=== PATIENT | male | born 1980 | race Hispanic/Latino ===

== ENCOUNTER 2018-09-01 21:53 | Emergency (ER) | payer OTHER ==
[2018-09-02] MEDS ORDERED: CEPHALEXIN 500 MG CAPSULE ONE (00:03)
[2018-09-02] MEDS ORDERED: SULFAMETHOX-TMP DS 800/160 TAB ONE (00:03)
== END 2018-09-02 00:10 | disposition home or self-care (01) ==
LOC: EDH 21:53
DX: L05.01 Pilonidal cyst with abscess (principal); Z72.0 Tobacco use